=== PATIENT | male | born 1970 ===

== ENCOUNTER 2024-05-28 00:53 | Emergency (ER) | payer SELFPAY ==
[2024-05-28 01:01] VITALS: BP 139/88; PULSE 109; RESP 18; TEMP 36.7; O2SAT 96; BMI 33.8
--- NOTE | 2024-05-28 01:26 | XRR_ITS ---
PROCEDURE INFORMATION: Exam: XR Left Foot Exam date and time: 05/28/2024 1:44 AM Age: 53 years old Clinical indication: Pain; Foot; Left; Additional info: Foot pain history of gout TECHNIQUE: Imaging protocol: Radiologic exam of the left foot. Views: 3 or more views. COMPARISON: No relevant prior studies available. FINDINGS: Bones/joints: There are normal variant accessory ossicles. Mild narrowing of the interphalangeal joint spaces. There are small marginal osteophytes across the 1st metatarsophalangeal joint. Mild subchondral cystic changes are present across the 1st interphalangeal joint. Fall marginal osteophytes are present across the hallux sesamoid complex. Mild hallux valgus. Soft tissues: Normal. XR/XR foot LT min 3V* [id number] IMPRESSION: 1. Multi-articular primary osteoarthritic changes including joint space narrowing, subchondral cystic/sclerotic changes, and marginal osteophyte formations. These changes are most prominent involving the 1st digit. 2. Mild hallux valgus
[2024-05-28 01:34] LABS: Basophils % 0.4 %; Eosinophils # 0.3 10^3/uL (0.0-0.8); Eosinophils % 3.3 %; Hematocrit 39.4 % (37-53); Lymphocytes # 2.9 10^3/uL (0.8-4.8); Mean Corpuscular Hemoglobin 31.2 pg (27-33); Mean Corpuscular Volume 89.1 fl (82-101); Mean Platelet Volume 9.6 fL (7.4-10.4); Monocytes # 0.9 10^3/uL (0.2-0.9); Monocytes % 9.6 %; Neutrophils # 4.84 10^3/uL (1.8-7.7); Neutrophils % 54.4 %; Nucleated Red Blood Cells % 0 %; Platelet Count 241 10^3/cmm (157-399); Red Blood Count 4.42 10^6/uL (3.85-5.65); Red Cell Distribution Width 11.6 % (12.1-15.1)
--- NOTE | 2024-05-28 01:44 | ED_ITS ---
HPI - Extremity Problem 2 General: Chief complaint: Extremity Problem,Nontraumatic Stated complaint: left foot pain Time Seen by Provider: 05/28/24 01:26 History of Present Illness: Patient presents to the ER with episodes of left foot pain primarily as great toe region. Patient has a history of gout and he says this is the exact same thing it happens when his gout flares up. Patient has taken prednisone in the past for this. Patient denies any new trauma. Patient states his pain is worse with movement. 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 And does not eat very healthy. Related Data Previous Rx's Medication Instructions Recorded naproxen sodium 550 mg tablet 550 mg PO BID PRN pain #30 tabs 05/28/24 prednisone 50 mg tablet 50 mg PO DAILY #5 tabs 05/28/24 Allergies Allergy/AdvReac Type Severity Reaction Status Date / Time No Known Allergies Allergy Verified 05/28/24 01:05 Review of Systems 2 General: Reports: 10 or more systems reviewed and unremarkable except in HPI and below Physical Exam 2 Const: COMMON NORMALS: no acute distress, average body habitus, patient oriented x3, no limitations, healthy appearing, alert and well nourished HENMT: COMMON NORMALS: normocephalic, atraumatic, hearing grossly normal bilaterally, external ears normal, Normal external nose present and moist oral mucous membranes HEAD & SCALP: normocephalic and atraumatic NOSE: Normal external nose present EXTERNAL EAR: Yes external ears normal Neck/C-Spine: COMMON NORMALS: no JVD Chest: COMMONS NORMALS: normal inspection of the chest and normal palpation of entire chest wall Resp: COMMON NORMALS: normal respiratory effort, No retractions, No use of accessory muscles and clear to auscultation bilaterally AUSCULTATION: clear to auscultation bilaterally Cardio: COMMON NORMALS: no JVD, regular rate, regular rhythm, S1 normal heart sound present, S2 normal heart sound present, No gallops present (Cardio), No clicks present (Cardio), No murmurs present (Cardio) and No rub (Cardio) R ATE: regular rate RHYTHM: regular rhythm HEART SOUNDS: S1 normal heart sound present and S2 normal heart sound present GI: COMMON NORMALS: Normal to inspection, nondistended, normoactive bowel sounds present, Soft to palpation, non-tender, No hepatosplenomegaly present and no masses PALPATION: Yes Soft to palpation and Yes No hepatosplenomegaly present Extremity: NARRATIVE EXTREMITY EXAM: Left foot primarily great toe area red irritated tender to palpate consistent with a gout flare of Neuro: COMMON NORMALS: patient oriented x3 SENSORIUM/ORIENTATION: Yes alert Course 2 Vital Signs: Vital signs: Vital Signs Temperature 98.0 F 05/28/24 01:01 Pulse Rate 109 H 05/28/24 01:51 Respiratory Rate 18 05/28/24 01:01 Blood Pressure 142/94 05/28/24 01:51 Pulse Oximetry 93 05/28/24 01:51 Oxygen Delivery Me thod Room Air 05/28/24 01:01 MDM - Extremity (Nontraumatic) Medical Decision Making Your cast was elevated on the blood work otherwise lab work was unremarkable. X-ray is read by myself is no acute changes, patient was given prednisone here in ER and will be discharged home on prednisone and naproxen. Patient is to follow-up with his PCP within next 7 days. Medical Records I reviewed the patient's medical records. Lab Data I reviewed the patient's lab results. 05/28/24 01:21 05/28/24 01:21 Laboratory Results WBC 8.90 10^3/uL (3.29-11.43) 05/28/24 01:21 RBC 4.42 10^6/uL (3.85-5.65) 05/28/24 01:21 Hgb 13.80 g/dL (11.27-16.99) 05/28/24 01:21 Hct 39.4 % (37-53) 05/28/24 01:21 MCV 89.1 fl (82-101) 05/28/24 01:21 MCH 31.2 pg (27-33) 05/28/24 01:21 MCHC 35.0 g/dL (30-55) 05/28/24 01:21 RDW 11.6 % (12.1-15.1) L 05/28/24 01:21 Plt Count 241 10^3/cmm (157-399) 05/28/24 01:21 MPV 9.6 fL (7.4-10.4) 05/28/24 01:21 Neut % (Auto) 54.4 % 05/28/24 01:21 Lymph % (Auto) 32.0 % 05/28/24 01:21 [place] % (Auto) 9.6 % 05/28/24 01:21 Eos % (Auto) 3.3 % 05/28/24 01:21 Baso % (Auto) 0.4 % 05/28/24 01:21 Neut # (Auto) 4.84 10^3/uL (1.8-7.7) 05/28/24 01:21 Lymph # (Auto) 2.9 10^3/uL (0.8-4.8) 05/28/24 01:21 [place] # (Auto) 0.9 10^3/uL (0.2-0.9) 05/28/24 01:21 Eos # (Auto) 0.3 10^3/uL (0.0-0.8) 05/28/24 01:21 Baso # (Auto) 0.0 10^3/uL (0.0-0.1) 05/28/24 01:21 Nucleated RBC % (auto) 0 % 05/28/24 01:21 Nucleated RBCs # 0.0 /100WBC 05/28/24 01:21 Sodium 138 mmol/L (136-145) 05/28/24 01:21 Potassium 3.6 mmol/L (3.5-5.1) 05/28/24 01:21 Chloride 103 mmol/L (98-107) 05/28/24 01:21 Carbon Dioxide 23 mmol/L (22-29) 05/28/24 01:21 Anion Gap 15.6 (5-19) 05/28/24 01:21 BUN 14 mg/dL (6-20) 05/28/24 01:21 Creatinine 0.8 mg/dL (0.7-1.2) 05/28/24 01:21 GFR Calculation 101.9 mL/min (90-130) 05/28/24 01:21 Glucose 151 mg/dL (65-115) H 05/28/24 01:21 Calculated Osmolality 289 mOsm/kg (285-295) 05/28/24 01:21 Uric Acid 8.2 mg/dL (3.4-7.0) H 05/28/24 01:21 Calcium 8.5 mg/dL (8.5-10.5) 05/28/24 01:21 Total Bilirubin 0.4 mg/dL (0.15-1.2) 05/28/24 01:21 ALT 35 U/L (0-41) 05/28/24 01:21 Alkaline Phosphatase 84 U/L (40-130) 05/28/24 01:21 Total Protein 6.9 g/dL (6.6-8.7) 05/28/24 01:21 Albumin 4.4 g/dL (3.5-5.2) 05/28/24 01:21 Globulin 2.5 g/dL (1.3-4.6) 05/28/24 01:21 All radiology interpretation(s) finalized by discharge Discharge Plan Discharge Patient Disposition: Home Clinical Impression: Gout Qualifiers: Gout site: foot Gout etiology: unspecified cause Chronicity: acute Laterality: left Qualified Code(s): M10.9 - Gout, unspecified Condition: Stable Prescriptions: New prednisone 50 mg tablet 50 mg PO DAILY Qty: 5 0RF naproxen sodium 550 mg tablet 550 mg PO BID PRN (Reason: pain) Qty: 30 0RF Discharge Orders: Discharge ED (Routine); Ordered 05/28/24 Ordered By: Igor Rhoades Patient Instructions: Gout, Low Purine Diet (ED) Activity Restrictions/Additional Instructions: Uric acid was elevated 8.2, given prednisone in ER and a prescription for prednisone and proximal sent to your pharmacy. Please pick them up and take them as directed. Please follow-up with your family practice physician within next 7 to 10 days for further evaluation treatment. Coding Level of Care Code ED [employer] for Marylu Lopez
[2024-05-28 01:49] LABS: Alanine Aminotransferase 35 U/L (0-41); Albumin Level 4.4 g/dL (3.5-5.2); Alkaline Phosphatase 84 U/L (40-130); Blood Urea Nitrogen 14 mg/dL (6-20); Calcium 8.5 mg/dL (8.5-10.5); Carbon Dioxide 23 mmol/L (22-29); Chloride 103 mmol/L (98-107); Creatinine Clr Calc Pharmacy 121.8348; Globulin 2.5 g/dL (1.3-4.6); Glomerular Filtration Rate 101.9 mL/min (90-130); Glucose 151 mg/dL (65-115); Osmolality Calculated 289 mOsm/kg (285-295); Sodium 138 mmol/L (136-145); Total Bilirubin 0.4 mg/dL (0.15-1.2); Total Protein 6.9 g/dL (6.6-8.7); Uric Acid 8.2 mg/dL (3.4-7.0)
[2024-05-28] MEDS: predniSONE 20 mg Tablet 60 MG PO (01:49)
[2024-05-28 01:50] LABS: Anion Gap 15.6 (5-19); Potassium 3.6 mmol/L (3.5-5.1)
[2024-05-28 01:51] VITALS: BP 142/94; PULSE 109; O2SAT 93
[2024-05-28 01:57] LABS: Aspartate Amino Transferase 5 U/L (0-40)
[2024-05-28 02:36] VITALS: BP 145/87; PULSE 104; O2SAT 94
== END 2024-05-28 02:38 | disposition home or self-care (01) ==
PROVIDERS: Emergency Provider Emergency Medicine
DX: M10.9 Gout, unspecified (principal)
CPT/HCPCS: 73630; 80053; 84550; 85025; 99284; J7512